=== PATIENT | female | born 1985 | race American Indian/Alaskan Native ===

== ENCOUNTER 2016-07-14 08:29 | Emergency (ER) | payer SELFPAY | END 2016-07-14 17:15 | disposition left against medical advice (07) | LOC: ED 08:29 | DX: Z53.21 Procedure and treatment not carried out due to patient leaving prior to being seen by health care provider (principal) ==

== ENCOUNTER 2017-07-28 08:30 | Emergency (ER) | payer SELFPAY ==
[2017-07-28 11:32] LABS: Basophils # (Auto) 0.1 K/mm3 (0.0-0.1); Basophils % (Auto) 0.5 % (0.0-1.8); Eosinophils # (Auto) 0.1 K/mm3 (0.0-0.4); Eosinophils % (Auto) 1.4 % (0.0-4.3); Hematocrit 37.1 % (30.3-42.9); Hemoglobin 12.4 gm/dl (10.1-14.3); Lymphocytes % (Auto) 29.8 % (13.4-35.0); Mean Corpuscular HGB Conc 33 % (30-34); Mean Corpuscular Hemoglobin 27 pg (28-32); Mean Corpuscular Volume 82 fl (79-97); Monocytes # (Auto) 0.8 K/mm3 (0.0-0.8); Monocytes % (Auto) 7.9 % (0.0-7.3); Platelet Count 323 K/mm3 (140-440); Red Blood Count 4.54 M/mm3 (3.65-5.03); Red Cell Distribution Width 14.7 % (13.2-15.2)
[2017-07-28 11:49] LABS: Alanine Aminotransferase 31 units/L (7-56); Albumin 3.7 g/dL (3.9-5); BUN/Creatinine Ratio 10; Blood Urea Nitrogen 5 mg/dL (7-17); Calcium 8.9 mg/dL (8.4-10.2); Hemolysis Index 33
[2017-07-28] MEDS ORDERED: DILAUDID IV ONE ×2 (12:24→21:33)
[2017-07-28] MEDS ORDERED: REGLAN IV ONE (12:24)
[2017-07-28] MEDS ORDERED: TORADOL IV ONE (12:24)
[2017-07-28] MEDS ORDERED: BENADRYL IV ONE (12:24)
--- NOTE | 2017-07-28 12:27 | Emergency Department Report ---
ED Headache HPI - General Chief Complaint: Headache Stated Complaint: HEADACHE Time Seen by Provider: 07/28/17 12:17 Source: patient Exam Limitations: no limitations - History of Present Illness Initial Comments: 31 year old female with no significant past medical history presents to the hospital complaining of headache 2 months. Headache is frontal, constant, and with no improvement with [id number] Motrin. Pain rated moderate to severe in intensity. Worse with light exposure. Patient denies recent head trauma, neck pain, or fever. Positive nausea without vomiting. Mild blurred vision reported. Patient saw an telecommunicator on 07/25/2017 and patient was sent to to the ED for evaluation. Supervisor Slashing Department saw bilateral papilledema on exam and CT head with possible lumbar puncture suggested. Patient did not come to the ED until today. Patient also mentions that she's had sternal chest pain intermittently for several months. Pain does not occur daily. It is sharp and lasting 5 minutes. Worse with palpation. No shortness of breath. Patient complains of blurred vision 2 months since headache has persisted. Allergies/Adverse Reactions: Allergies No Known Allergies Allergy (Unverified 07/28/17 08:42) ED Review of Systems ROS: Stated complaint: HEADACHE Other details as noted in HPI Comment: All other systems reviewed and negative Other: Constitutional: No fevers chills Eyes: As per HPI ENT: No ear pain or throat pain Neck: Denies pain Respiratory: Denies cough wheezing shortness of breath Cardiovascular: As per HPI GI: Denies abdominal pain, nausea, vomiting, diarrhea : Denies dysuria Musculoskeletal: Denies back pain Skin: Denies rash, lesions, erythema Neurologic: As per HPI Psychiatric: Denies suicidal ideation, hallucinations ED Past Medical Hx - Past Medical History Previous Medical History?: No - Surgical History Past Surgical History?: No - Social History Smoking Status: Never Smoker Substance Use Type: None ED Physical Exam - General Limitations: No Limitations - Other Other exam information: General: No limitations, patient is alert in no acute distress Head exam: Atraumatic, normocephalic Eyes exam: Normal appearance, pupils equal reactive to light, extraocular movements intact. visual acuity R 20/100 Left unable to visualize any letters ENT: Moist mucous membrane, normal oropharynx Neck exam: Normal inspection, full range of motion, no meningismus nontender Respiratory exam: Clear to auscultation bilateral, no wheezes, rales, crackles. Reproducible sternal chest wall tenderness Cardiovascular: Normal rate and rhythm, normal heart sounds Abdomen: Soft, nondistended, and nontender, with normal bowel sounds, no rebound, or guarding Extremity: Full range of motion normal inspection no deformity Back: Normal Inspection, full range of motion, no tenderness Neurologic: Alert, oriented x3, cranial nerves intact, no motor or sensory deficit Psychiatric: normal affect, normal mood Skin: Warm, dry, intact ED Course Vital Signs 07/28/17 07/28/17 07/28/17 08:42 13:17 13:18 Temperature 98 F 98.4 F Pulse Rate 70 71 Respiratory 20 14 14 Rate Blood Pressure 118/73 Blood Pressure 102/70 [Left] O2 Sat by Pulse 100 100 100 Oximetry 07/28/17 07/28/17 16:36 18:31 Temperature 98.2 F Pulse Rate 77 76 Respiratory 16 14 Rate Blood Pressure Blood Pressure 112/41 113/65 [Left] O2 Sat by Pulse 100 97 Oximetry - Reevaluation(s) Reevaluation #1: 07/28/17 16:40 Patient reports some mild improvement meds and LP - Consultations Consultation #1: 07/28/17 16:24 Dr Bradley neurologist consulted: rec consult neurosurgery since pt has visual complaints to determine if acute intervention is need. rec to start Diamox 500 mg BID Consultation #2: 07/28/17 17:10 case d/w Dr Ortiz neurosurgeon at [facility]. She agreed to accept patient for transfer 07/28/17 18:01 informed at this time that there are no beds available at [facility]. [facility] [place] Consultation #3: 07/28/17 18:17 Case D/w Dr Dhaliwal. . . Neurosurgeon at [facility] [place] that he recommended that the pt go to [place] (and wait for bed availably) since they are better equipped to handle this condition. 07/28/17 18:54 Case d/w Dr Kleber Stevens Neuro technical sales manager. No beds at this time ED Medical Decision Making - Lab Data Result diagrams: 07/28/17 11:10 07/28/17 11:10 Lab Results 07/28/17 07/28/17 07/28/17 Range/Units 11:10 11:10 12:52 WBC 10.0 (4.5-11.0) K/mm3 RBC 4.54 (3.65-5.03) M/mm3 Hgb 12.4 (10.1-14.3) gm/dl Hct 37.1 (30.3-42.9) % MCV 82 (79-97) fl MCH 27 L (28-32) pg MCHC 33 (30-34) % RDW 14.7 (13.2-15.2) % Plt Count 323 (140-440) K/mm3 Lymph % (Auto) 29.8 (13.4-35.0) % [place] % (Auto) 7.9 H (0.0-7.3) % Eos % (Auto) 1.4 (0.0-4.3) % Baso % (Auto) 0.5 (0.0-1.8) % Lymph # 3.0 (1.2-5.4) K/mm3 [place] # 0.8 (0.0-0.8) K/mm3 Eos # 0.1 (0.0-0.4) K/mm3 Baso # 0.1 (0.0-0.1) K/mm3 Seg Neutrophils % 60.4 (40.0-70.0) % Seg Neutrophils # 6.1 (1.8-7.7) K/mm3 PT (12.2-14.9) Sec. INR (0.87-1.13) APTT (24.2-36.6) Sec. Sodium 139 (137-145) mmol/L Potassium 4.4 (3.6-5.0) mmol/L Chloride 100.9 (98-107) mmol/L Carbon Dioxide 24 (22-30) mmol/L Anion Gap 19 mmol/L BUN 5 L (7-17) mg/dL Creatinine 0.5 L (0.7-1.2) mg/dL Estimated GFR > 60 ml/min BUN/Creatinine Ratio 10 % Glucose 85 (65-100) mg/dL Calcium 8.9 (8.4-10.2) mg/dL Total Bilirubin 0.30 (0.1-1.2) mg/dL AST 31 (5-40) units/L ALT 31 (7-56) units/L Alkaline Phosphatase 72 (35-129) units/L Total Protein 7.3 (6.3-8.2) g/dL Albumin 3.7 L (3.9-5) g/dL Albumin/Globulin Ratio 1.0 % Urine Color Yellow (Yellow) Urine Turbidity Clear (Clear) Urine pH 6.0 (5.0-7.0) Ur Specific [place] 1.019 (1.003-1.030) Urine Protein <15 mg/dl (Negative) mg/dL Urine Glucose (UA) Neg (Negative) mg/dL Urine Ketones Neg (Negative) mg/dL Urine Blood Sm (Negative) Urine Nitrite Neg (Negative) Ur Reducing Substances Not Reportable Urine Bilirubin Neg (Negative) Urine Ictotest Not Reportable Urine Urobilinogen 2.0 (<2.0) mg/dL Ur Leukocyte Esterase Tr (Negative) Urine WBC (Auto) 1.0 (0.0-6.0) /HPF Urine RBC (Auto) 7.0 (0.0-6.0) /HPF U Epithel Cells (Auto) 16.0 H (0-13.0) /HPF Urine Bacteria (Auto) 1+ (Negative) /HPF Urine Mucus Few /HPF Urine HCG, Qual Negative (Negative) CSF Appearance CSF Color CSF WBC (1-10) /mm3 CSF RBC (0-0) /mm3 CSF Glucose mg/dL CSF Total Protein mg/dL 07/28/17 07/28/17 07/28/17 Range/Units 13:19 15:30 15:30 WBC (4.5-11.0) K/mm3 RBC (3.65-5.03) M/mm3 Hgb (10.1-14.3) gm/dl Hct (30.3-42.9) % MCV (79-97) fl MCH (28-32) pg MCHC (30-34) % RDW (13.2-15.2) % Plt Count (140-440) K/mm3 Lymph % (Auto) (13.4-35.0) % [place] % (Auto) (0.0-7.3) % Eos % (Auto) (0.0-4.3) % Baso % (Auto) (0.0-1.8) % Lymph # (1.2-5.4) K/mm3 [place] # (0.0-0.8) K/mm3 Eos # (0.0-0.4) K/mm3 Baso # (0.0-0.1) K/mm3 Seg Neutrophils % (40.0-70.0) % Seg Neutrophils # (1.8-7.7) K/mm3 PT 12.8 (12.2-14.9) Sec. INR 0.92 (0.87-1.13) APTT 24.0 L (24.2-36.6) Sec. Sodium (137-145) mmol/L Potassium (3.6-5.0) mmol/L Chloride (98-107) mmol/L Carbon Dioxide (22-30) mmol/L Anion Gap mmol/L BUN (7-17) mg/dL Creatinine (0.7-1.2) mg/dL Estimated GFR ml/min BUN/Creatinine Ratio % Glucose (65-100) mg/dL Calcium (8.4-10.2) mg/dL Total Bilirubin (0.1-1.2) mg/dL AST (5-40) units/L ALT (7-56) units/L Alkaline Phosphatase (35-129) units/L Total Protein (6.3-8.2) g/dL Albumin (3.9-5) g/dL Albumin/Globulin Ratio % Urine Color (Yellow) Urine Turbidity (Clear) Urine pH (5.0-7.0) Ur Specific [place] (1.003-1.030) Urine Protein (Negative) mg/dL Urine Glucose (UA) (Negative) mg/dL Urine Ketones (Negative) mg/dL Urine Blood (Negative) Urine Nitrite (Negative) Ur Reducing Substances Urine Bilirubin (Negative) Urine Ictotest Urine Urobilinogen (<2.0) mg/dL Ur Leukocyte Esterase (Negative) Urine WBC (Auto) (0.0-6.0) /HPF Urine RBC (Auto) (0.0-6.0) /HPF U Epithel Cells (Auto) (0-13.0) /HPF Urine Bacteria (Auto) (Negative) /HPF Urine Mucus /HPF Urine HCG, Qual (Negative) CSF Appearance Clear Clear CSF Color Colorless Colorless CSF WBC 2 1 (1-10) /mm3 CSF RBC 0 0 (0-0) /mm3 CSF Glucose 58 mg/dL CSF Total Protein 17 mg/dL - Radiology Data Radiology results: report reviewed Read by radiologist cT head: No acute findings - Medical Decision Making LP performed by radiology under fluoroscopy. Opening pressure 23 cm. Closed pressure 21 cm. CSF fluid was collected for studies. No evidence or suspicion for infection. No signs of hemorrhage Patient received Diamox 500mg x1 prior to transfer Pt will be transferred to [facility]. Accepting Doctor Angel neurosurgeon. On list and pt will be transferred when bed available. Other faciliites also without beds. Diamox 500 mg twice a day will be continued until transfer PRN medication will be ordered - Differential Diagnosis migraine, tension, pseudotumor Critical Care Time: No Critical care attestation.: If time is entered above; I have spent that time in minutes in the direct care of this critically ill patient, excluding procedure time. ED Disposition Clinical Impression: Pseudotumor cerebri, Visual impairment Disposition: DC/TX-70 ANOTHER TYPE HLTHCARE Is pt being admited?: No Does the pt Need Aspirin: No Condition: Stable Time of Disposition: 17:11 (Accepted by Dr Ortiz/[facility])
[2017-07-28] MEDS ORDERED: ZOFRAN ONE (12:43)
[2017-07-28] MEDS ORDERED: ZOFRAN IV ONE (12:52)
[2017-07-28 13:08] LABS: HCG Qualitative,Urine Negative (Negative)
[2017-07-28 13:10] LABS: Bacteria,Urine 1+ /HPF (Negative); Bilirubin,Urine NEG (Negative); Blood,Urine SM (Negative); Color,Urine Yellow (Yellow); Mucus,Urine FEW /HPF; Nitrite,Urine NEG (Negative); Protein,Urine <15 mg/dL mg/dL (Negative)
--- NOTE | 2017-07-28 13:50 | Cat Scan Report ---
CT HEAD WITHOUT CONTRAST: HISTORY: Headache, bilateral papilledema. TECHNIQUE: Sequential 2.5mm CT images. COMPARISON: none. FINDINGS: Cerebral Parenchyma: Within normal limits. Cerebellum: Within normal limits. Brainstem: Within normal limits. Ventricles: Normal. Sella: Normal. Extra-axial spaces: Normal. Basal Cisterns: Normal. Intracranial Hemorrhage: None. Midline Shift: None. Calvarium: Normal. Sinuses: Normal. Mastoid Air Cells: Normal. Visualized Orbits: Normal. IMPRESSION: Cranial CT scan within normal limits.
[2017-07-28 14:14] LABS: INR 0.92 (0.87-1.13)
--- NOTE | 2017-07-28 15:38 | Fluoroscopy Report ---
FLUOROSCOPY LUMBAR PUNCTURE History: Headache, papilledema. Description of procedure: Informed consent was obtained. Sterile technique was utilized. 1% lidocaine for skin anesthesia. 2 fluoroscopic images were captured. Using fluoroscopy guidance, lumbar puncture was performed at the L2-3 level. The opening pressure was mildly elevated measuring 23 cm of water. 4 tubes of CSF were collected and sent to the lab for analysis. The closing pressure measured 21 cm water. Impression: Successful fluoroscopy guided lumbar puncture. The opening pressure measured 23 cm of water. The closing pressure measured 21 cm water.
--- NOTE | 2017-07-28 15:41 | Procedure Note ---
Date of procedure: 07/28/17 Pre-op diagnosis: papilledema, headache Post-op diagnosis: same Procedure: flouro guided lumbar punture Anesthesia: local Surgeon: MICHOACANO GAGE Estimated blood loss: none Pathology: list (4 tubes) Specimen disposition: to lab Condition: stable Disposition: other (back to ER)
[2017-07-28 15:56] LABS: Glucose,CSF 58 mg/dL
[2017-07-28 16:34] LABS: Appearance,CSF Clear; Red Blood Cell,CSF 0 /mm3 (0-0); White Blood Cell,CSF 1 /mm3 (1-10); White Blood Cell,CSF 2 /mm3 (1-10)
[2017-07-28] MEDS ORDERED: DIAMOX PO ONE (17:30)
[2017-07-28 17:46] LABS: Basophils CSF 0 %
[2017-07-28 17:47] LABS: Total Cells Counted 1 /mm3
[2017-07-28 17:48] LABS: Basophils CSF 0 %
[2017-07-29 04:17] VITALS: BP 108/52
[2017-07-29] MEDS ORDERED: DIAMOX PO SCH (10:00)
== END 2017-07-29 04:17 | disposition other institution (70) ==
LOC: ED 08:30
DX: G93.2 Benign intracranial hypertension (principal); H54.7 Unspecified visual loss
CPT/HCPCS: 36415; 62270; 70450; 77003; 80053; 81001; 81025; 82947; 84160; 85025; 85610; 85730; 87116; 89051; 96374; 96375; 96376; 99285; J1170; J1200; J1885; J2405

== ENCOUNTER 2018-01-14 01:09 | Inpatient (IN) | payer OTHER ==
[2018-01-14] MEDS ORDERED: NACL 0.9% 1000 ML 1,000 ML IV ONE ×2 (02:05→07:41)
[2018-01-14] MEDS ORDERED: TORADOL ONE (02:12)
[2018-01-14] MEDS ORDERED: ZOFRAN ONE ×2 (02:12→12:00)
[2018-01-14] MEDS ORDERED: ZOFRAN IV ONE (02:30)
[2018-01-14] MEDS ORDERED: TORADOL IV ONE (02:31)
[2018-01-14 02:56] LABS: Basophils % (Auto) 0.5 % (0.0-1.8); Eosinophils # (Auto) 0.2 K/mm3 (0.0-0.4); Eosinophils % (Auto) 2.5 % (0.0-4.3); Hematocrit 38.4 % (30.3-42.9); Hemoglobin 12.8 gm/dl (10.1-14.3); Lymphocytes % (Auto) 25.7 % (13.4-35.0); Mean Corpuscular HGB Conc 33 % (30-34); Mean Corpuscular Hemoglobin 27 pg (28-32); Mean Corpuscular Volume 82 fl (79-97); Monocytes # (Auto) 0.7 K/mm3 (0.0-0.8); Monocytes % (Auto) 8.9 % (0.0-7.3); Platelet Count 314 K/mm3 (140-440); Red Blood Count 4.71 M/mm3 (3.65-5.03); Red Cell Distribution Width 15.1 % (13.2-15.2)
[2018-01-14 03:02] LABS: Alanine Aminotransferase 33 units/L (7-56); BUN/Creatinine Ratio 20; Blood Urea Nitrogen 12 mg/dL (7-17); Calcium 9.4 mg/dL (8.4-10.2); Hemolysis Index 4; Lipase 21 units/L (13-60)
[2018-01-14 03:43] LABS: Amorphous Crystals,Urine Few; Bilirubin,Urine NEG (Negative); Blood,Urine LG (Negative); Color,Urine Yellow (Yellow); Mucus,Urine FEW /HPF; Protein,Urine <15 mg/dL mg/dL (Negative)
--- NOTE | 2018-01-14 06:24 | Ultrasound Report ---
FINAL REPORT EXAM: US OB < = 14 WEEKS FETUS HISTORY: pain TECHNIQUE: Transabdominal imaging was obtained of the pelvis. FINDINGS: The uterus is anteverted measuring 9.8 cm x 3.6 cm x 5.2 cm. There is no evidence of an intrauterine at this time. The endometrial thickness is 1.2 cm with heterogeneous echotexture in the lower uterine segment. Free fluid is not seen. The right ovary is normal size contour and echotexture measuring 2.5 cm x 1.8 cm x 2.5 cm. The left ovary reveals a anechoic cyst measures 6.6 cm x 5.8 cm x 4.7 cm. IMPRESSION: No evidence of an IUP at this time. Heterogeneous echotexture in the lower uterine segment possibly representing retained products of conception. Left ovarian cyst measuring 6.6 cm x 5.8 cm x 4.7 cm.
--- NOTE | 2018-01-14 06:25 | Ultrasound Report ---
FINAL REPORT EXAM: US OB TRANSVAGINAL HISTORY: bleed TECHNIQUE: Transvaginal imaging was obtained of the pelvis. FINDINGS: The uterus is anteverted measuring 9.8 cm x 3.6 cm x 5.2 cm. The endometrial thickness is 1.2 cm. In the lower uterine segment the endometrium is heterogeneous. Retained products of conception cannot be excluded. There is no evidence of an IUP otherwise. Free fluid is not seen. The right ovary is normal size contour echotexture measuring 2.5 cm x 1.8 cm x 2.5 cm. The left ovary reveals a 6.6 cm x 5.8 cm x 4.7 cm anechoic cyst. IMPRESSION: No evidence of an IUP at this time. Heterogeneous echotexture of the endometrium in the lower uterine segment. Retained products of conception cannot be excluded. Anechoic cyst in left ovary measuring 6.6 cm x 5.8 cm x 4.7 cm. No evidence of free fluid
--- NOTE | 2018-01-14 07:14 | Emergency Department Report ---
ED Abdominal Pain HPI - General Chief Complaint: Abdominal Pain Stated Complaint: ABD PAIN Time Seen by Provider: 01/14/18 06:13 Source: patient, EMS Mode of arrival: Stretcher Limitations: No Limitations - History of Present Illness MD Complaint: abdominal pain -: Sudden Location: periumbilical Radiation: none Migration to: no migration Severity: moderate Severity scale (0 -10): 5 Quality: cramping Consistency: constant Improves With: nothing Worsens With: nothing Associated Symptoms: nausea, vomiting - Related Data LMP (females 10-50): Allergies Allergy/AdvReac Type Severity Reaction Status Date / Time No Known Allergies Allergy Unverified 07/28/17 08:42 ED Review of Systems ROS: Stated complaint: ABD PAIN Other details as noted in HPI Comment: All other systems reviewed and negative Constitutional: denies: chills, fever Eyes: denies: eye pain ENT: denies: ear pain Respiratory: no symptoms reported Cardiovascular: denies: chest pain, palpitations Endocrine: no symptoms reported Gastrointestinal: abdominal pain, nausea, vomiting. denies: diarrhea Genitourinary: denies: urgency, dysuria, frequency, discharge Musculoskeletal: denies: back pain, joint swelling Skin: denies: rash, lesions Neurological: denies: headache, weakness, numbness Psychiatric: denies: anxiety, depression Hematological/Lymphatic: denies: easy bleeding, easy bruising ED Past Medical Hx - Past Medical History Previous Medical History?: No - Surgical History Past Surgical History?: No - Social History Smoking Status: Never Smoker Substance Use Type: None ED Physical Exam - General Limitations: No Limitations General appearance: alert, in no apparent distress - Head Head exam: Present: atraumatic, normocephalic, normal inspection - Eye Eye exam: Present: normal appearance, PERRL, EOMI Pupils: Present: normal accommodation - ENT ENT exam: Present: normal exam, normal orophraynx, mucous membranes moist - Neck Neck exam: Present: normal inspection, full ROM. Absent: tenderness - Respiratory Respiratory exam: Present: normal lung sounds bilaterally. Absent: wheezes, rales, rhonchi - Cardiovascular Cardiovascular Exam: Present: regular rate, normal rhythm, normal heart sounds - GI/Abdominal GI/Abdominal exam: Present: soft, normal bowel sounds. Absent: distended, tenderness, guarding, rebound - Extremities Exam Extremities exam: Present: normal inspection, full ROM, tenderness, normal capillary refill - Back Exam Back exam: Present: normal inspection, full ROM. Absent: tenderness - Neurological Exam Neurological exam: Present: alert, oriented X3, CN II-XII intact - Psychiatric Psychiatric exam: Present: normal affect, normal mood. Absent: depressed - Skin Skin exam: Present: warm, dry, intact, normal color ED Course Vital Signs 01/14/18 01/14/18 01/14/18 01:09 02:00 06:24 Temperature 98.0 F Pulse Rate 85 Respiratory 18 Rate Blood Pressure 106/71 O2 Sat by Pulse 96 98 95 Oximetry 01/14/18 01/14/18 01/14/18 06:31 06:37 06:45 Temperature Pulse Rate Respiratory 20 Rate Blood Pressure 116/58 116/58 O2 Sat by Pulse 99 98 100 Oximetry 01/14/18 07:01 Temperature Pulse Rate Respiratory Rate Blood Pressure 116/58 O2 Sat by Pulse 100 Oximetry - Reevaluation(s) Reevaluation #1: 01/14/18 07:45 I consulted the [employer]SULTANT doctor curbstone setter Dr. Meron Crooks. He wants patient nothing by mouth and she was to take the patient to the OR for D&C. ED Medical Decision Making - Lab Data Result diagrams: 01/14/18 02:29 01/14/18 02:29 - Radiology Data Radiology results: report reviewed, image reviewed - Medical Decision Making Abdominal pain. Miscarriage. Critical care attestation.: If time is entered above; I have spent that time in minutes in the direct care of this critically ill patient, excluding procedure time. ED Disposition Clinical Impression: Abdominal pain affecting , Incomplete miscarriage Nausea and vomiting Qualifiers: Vomiting type: unspecified Vomiting Intractability: non-intractable Qualified Code(s): R11.2 - Nausea with vomiting, unspecified Disposition: OP ADMIT IP TO THIS HOSP Is pt being admited?: Yes Does the pt Need Aspirin: No Condition: Stable Instructions: Abdominal Pain (ED) Referrals: PRIMARY CARE, [Primary Care Provider] - 3-5 Days Time of Disposition: 07:48
--- NOTE | 2018-01-14 10:50 | History and Physical Report ---
History of Present Illness Date of examination: 01/14/18 Chief complaint: vaginal bleeding, History of present illness: Pt is 32 year old -[place] female LMP 11/20/17 at 7w6d by LMP who presents with a h/o vaginal bleeding for the past two weeks with passage of clots. Ultrasound today shows no intrauterine and retained products of conception. She has not established care for this . She reports abdominal cramping and nausea since the bleeding began. Past History Past Medical History: other (Pt reports history of intracranial hypertension lost to follow up after Jul 2017 ) Past Surgical History: other (lumbar puncture in Jul 2017 ) Family/Genetic History: none Social history: no significant social history - Obstetrical History Expected Date of Delivery: 08/27/18 Actual Gestation: 7 Week(s) 6 Day(s) : 5 Para: 3 Hx # Term Pregnancies: 3 Number of Pregnancies: 0 Spontaneous Abortions: 1 Induced : 0 Number of Living Children: 3 Medications and Allergies Allergies Allergy/AdvReac Type Severity Reaction Status Date / Time No Known Allergies Allergy Unverified 07/28/17 08:42 Review of Systems All systems: negative - Vital Signs Vital signs: Vital Signs Temp Pulse Resp BP Pulse Ox 98.0 F 85 18 106/71 96 01/14/18 01:09 01/14/18 01:09 01/14/18 01:09 01/14/18 01:09 01/14/18 01:09 Temp Pulse Resp BP Pulse Ox 98 F 92 H 18 114/80 99 01/14/18 07:24 01/14/18 07:24 01/14/18 08:36 01/14/18 10:00 01/14/18 10:00 - Physical Exam Breasts: Positive: deferred Cardiovascular: Regular rate Lungs: Positive: Clear to auscultation Abdomen: Positive: soft (obesity ) Extremities: Positive: normal Results Result Diagrams: 01/14/18 02:29 01/14/18 02:29 Abnormal lab results 01/14/18 01/14/18 01/14/18 Range/Units 02:29 02:29 04:56 MCH 27 L (28-32) pg Becker % (Auto) 8.9 H (0.0-7.3) % Sodium 134 L (137-145) mmol/L Chloride 97.6 L (98-107) mmol/L Creatinine 0.6 L (0.7-1.2) mg/dL AST 58 H (5-40) units/L HCG, Quant 93.18 H (0-4) mIU/mL All other labs normal. Ultrasound: report reviewed (Uterus 9.8 x 3.6 x 5.2 cm. EMS 12 m, heterogenous. Left ovary with 6.6 cm anechoic cyst ) Assessment and Plan A: Retained Products of Conception H/o Intracranial Hypertension Obesity P: Proceed with suction dilation and curettage and other indicated procedures.
[2018-01-14] MEDS ORDERED: DOXYCYCLINE HYCLATE 100 MG in NACL 0.9% 250ML 250 ML IV ONE (11:00)
[2018-01-14] MEDS ORDERED: LACTATED RINGERS 1,000 ML IV SCH (11:00)
[2018-01-14] MEDS ORDERED: XYLOCAINE MPF 2% ONE (11:47)
[2018-01-14] MEDS ORDERED: DIPRIVAN 10 MG/ML IV ONE (11:48)
[2018-01-14] MEDS ORDERED: DILAUDID ONE ×2 (11:48→13:48)
[2018-01-14] MEDS ORDERED: CYTOTEC PR ONE ×2 (12:08→13:15)
[2018-01-14] MEDS ORDERED: METHERGINE IM ONE (12:08)
[2018-01-14] MEDS ORDERED: DILAUDID IV PRN (12:27)
[2018-01-14] MEDS ORDERED: PERCOCET 5/325 PO PRN ×2 (12:27→13:30)
--- NOTE | 2018-01-14 12:29 | Anesthesia Consultation ---
Anesthesia Consult and Med Hx Date of service: 01/14/18 - Airway Anesthetic Teeth Evaluation: Good ROM Head & Neck: Adequate Mental/Hyoid Distance: Adequate Mallampati Class: Class II Intubation Access Assessment: Probably Good - Pulmonary Exam CTA: Yes - Cardiac Exam Cardiac Exam: RRR - Pre-Operative Health Status ASA Pre-Surgery Classification: ASA2 Proposed Anesthetic Plan: General - Pulmonary Hx Smoking: No - Cardiovascular System Hx Hypertension: No - Central Nervous System Hx Neuromuscular Disorder: No - Endocrine Hx Renal Disease: No
--- NOTE | 2018-01-14 12:29 | Anesthesia Day of Surgery ---
Anesthesia Day of Surgery - Day of Surgery Patient Examined: Yes Patient H&P Reviewed: Yes Patient is NPO: Yes
[2018-01-14] MEDS ORDERED: MOTRIN PO PRN (13:30)
[2018-01-14] MEDS ORDERED: TYLENOL PO PRN (13:30)
--- NOTE | 2018-01-14 13:30 | Operative Report ---
Operative Report Operative Report: Date of Service: January 14, 2018 Preoperative Diagnosis: Incomplete at 7 wks Postoperative diagnosis: Same Procedure: Suction Dilation and Curettage Surgeon: Meron Crooks MD Anesthesia: General with LMA Findings: 1) 10-12 wk sized anteverted uterus that sounded to 9 cm 2) Cervix 1 cm dilated prior to the start of the procedure with dark colored clots at the external os EBL: 250 mL Specimen: Products of conception to pathology Drains: None Complications: None. Counts correct x 2 Medications: Methergine 0.2 mg, Misoprostol 800 mcg Disposition: Stable to PACU Indication for Procedure: The patient is a 32 year old -[place] at 7 wks by LMP found to have heavy vaginal bleeding and evidence of retained products of conception by ultrasound. She desires to proceed with surgical management. Procedure in detail: After the risks, benefits, alternatives and complications were explained to the patient, she gave informed consent for the procedure. She was then taken to the operating room with her IV noted to be running and placed in the dorsal supine position. SCDs were noted to be in place and functioning. General anesthesia was then induced without difficulty. An exam under anesthesia was then performed yielding a 10-12 wk sized uterus with a cervix dilated 1 cm. The patient was then placed in the dorsal lithotomy position and prepped and draped in a normal fashion. A timeout was performed. The bladder was emptied of urine using a rubber catheter. A bivalve speculum was then placed in the vagina for adequate visualization of the cervix. The anterior lip of the cervix was grasped with a single tooth tenaculum. The uterus was then gently sounded to 9 cm. The cervix was able to accomodate a number 25 Olea dilator. A sized 8 rigid curette was attached to suction and use to empty the uterine cavity. A sharp curettage was performed. She was given Methergine 0.2 mg IM to ensure hemostasis. All instruments were then removed atraumatically from the uterus and vagina. Misoprostol 800 mcg was placed per rectum. At this time the procedure was ended. The patient wad placed in the dorsal supine position. She was then extubated without difficulty and taken to the PACU in stable condition. The patient tolerated the procedure well. All counts were correct x 2.
--- NOTE | 2018-01-14 13:30 | Post Operative Note ---
Date of procedure: 01/14/18 Pre-op diagnosis: Incomplete Post-op diagnosis: same Findings: 1) 8-10 wk sized anteverted uterus 2) Cervix dilated 1 cm prior to the start of the procedure Procedure: Suction dilation and curettage Anesthesia: HEATH Surgeon: PATRICIA LR Estimated blood loss: 50-100ml Pathology: list (products of conception) Specimen disposition: to lab Condition: stable Disposition: PACU
--- NOTE | 2018-01-14 13:47 | Post Anesthesia Evaluation ---
- Post Anesthesia Evaluation Patient Participated: Yes Airway Patent: Yes Stable Respiratory Function: Yes Nausea/Vomiting: No Temp > 96.8F: Yes Pain Manageable: Yes Adequeate Hydration: Yes Anesthesia Complications: No Block Receding Appropriately: Not Applicable Patient on Ventilator: No
[2018-01-14 16:40] LABS: Hematocrit 38.3 % (30.3-42.9); Hemoglobin 13.1 gm/dl (10.1-14.3)
[2018-01-14 17:15] VITALS: BP 100/61
--- NOTE | 2018-01-14 18:45 | Discharge Summary ---
Providers - Providers Date of Admission: 01/14/18 13:32 Date of discharge: 01/14/18 Attending physician: PATRICIA CROOKS Primary care physician: [employer] Hospitalization Reason for admission: vaginal bleeding, other (incomplete ) Procedure: other (Suction dilation and curettage ) Procedure details: Please see operative report. Other procedures: none complications: none Discharge diagnosis: other (Incomplete ) Hospital course: The patient was admitted for surgical management of incomplete with retained products of conception. She underwent a suction dilation and curettage which she tolerated well. She was observed for several hours postoperatively until she met discharge criteria. She will follow up in the office in [address] Crooks. Condition at discharge: Stable Disposition: - TO HOME OR SELFCARE - Discharge Diagnoses (1) Retained products of conception Status: Acute (2) Incomplete miscarriage Status: Acute Plan - Discharge Medications Prescriptions: Doxycycline Hyclate [Doxycycline Hyclate TAB] 100 mg PO Q12HR #14 tab Ibuprofen [Motrin] 800 mg PO Q8HR PRN #30 tablet PRN Reason: Pain, Moderate (4-6) oxyCODONE /ACETAMINOPHEN [Percocet 5/325] 1 tab PO Q6HR PRN #15 tablet PRN Reason: Pain , Severe (7-10) - Provider Discharge Summary Activity: routine, no sex for 6 weeks, no heavy lifting 4 weeks, no strenuous exercise Diet: routine Instructions: routine Additional instructions: [] Smoking cessation referral if applicable(refer to patient education folder for contact #) [] Refer to [facility] Book[facility] Call your doctor immediately for: * Fever > 100.5 * Heavy vaginal bleeding ( >1 pad per hour) * Severe persistent headache * Shortness of breath * Reddened, hot, painful area to leg or breast * Drainage or odor from incision. * Keep incision clean and dry at all times and follow doctor's instructions regarding bathing/showering - Follow up plan Follow up: CHUCK MORRIS MD [Primary Care Provider] - 3-5 Days PATRICIA CROOKS MD [Staff Physician] - 01/26/18 (Please call to schedule postop appt )
== END 2018-01-14 22:08 | disposition home or self-care (01) | DRG 770 ==
LOC: ED 01:09 → OR 01:09 → EDSTATUS 12:32 → OB 13:32
PROVIDERS: ADMIT Obstetrics & Gynecology; ATTEND Obstetrics & Gynecology
PROC: 10D17ZZ Extraction of Products of Conception, Retained, Via Natural or Artificial Opening (ICD-10-PCS; principal; 2018-01-14)
DX: O03.4 Incomplete spontaneous abortion without complication (principal); O99.211 Obesity complicating pregnancy, first trimester; E66.9 Obesity, unspecified; Z68.35 Body mass index [BMI] 35.0-35.9, adult
CPT/HCPCS: 36415; 76801; 76817; 80053; 81001; 83690; 84702; 84703; 85014; 85018; 85025; 86900; 86901; 88305; J1170; J1885; J2210; J2405; J2704; J7030; J7050; J7120